=== PATIENT | male | born 1985 | race Caucasian/White ===

== ENCOUNTER 2021-06-20 18:50 | Emergency (ER) | payer BC ==
[~2021-06-20] VITALS: Ht 172.7 cm; Wt 81.0 kg
[2021-06-20 19:01] VITALS: BP 140/89
[2021-06-20] MEDS ORDERED: IBUPROFEN 800 MG TABLET PO ONE (20:30)
--- NOTE | 2021-06-20 20:37 | NUR ---
PT AT IMAGING.
[2021-06-20] MEDS ORDERED: IBUPROFEN 600 MG TABLET ONE (20:46)
[2021-06-20] MEDS ORDERED: IBUPROFEN 200 MG TABLET ONE (20:46)
--- NOTE | 2021-06-20 21:29 | NUR ---
US AT BEDSIDE
--- NOTE | 2021-06-20 21:58 | NUR ---
ALL RESULTS ARE BACK AT THIS TIME. CHART UP FOR RECHECK.
== END 2021-06-20 22:34 | disposition home or self-care (01) ==
LOC: ED 22:00
DX: M25.562 Pain in left knee (principal)
CPT/HCPCS: 99284